=== PATIENT | female | born 1970 | race Caucasian/White ===

== ENCOUNTER 2018-08-05 15:03 | Emergency (ER) | payer OTHER ==
[~2018-08-05] VITALS: Ht 149.9 cm; Wt 57.2 kg
[2018-08-05] MEDS ORDERED: AMBIEN5 MG (15:13)
[2018-08-05] MEDS ORDERED: PROZAC40 MG (15:13)
[2018-08-05] MEDS ORDERED: GABAPENTIN800 MG (15:14)
[2018-08-05] MEDS ORDERED: CLONAZEPAM1 MG (15:14)
[2018-08-05] MEDS ORDERED: TRAMADOL HCL50 MG (15:15)
[2018-08-05] MEDS ORDERED: ASPERCREME1 EACH (15:15)
== END 2018-08-05 19:43 | disposition home or self-care (01) ==
LOC: ER 15:03
DX: S13.4XXA Sprain of ligaments of cervical spine, initial encounter (principal); S30.1XXA Contusion of abdominal wall, initial encounter; S20.312A Abrasion of left front wall of thorax, initial encounter; V49.9XXA Car occupant (driver) (passenger) injured in unspecified traffic accident, initial encounter; Y93.89 Activity, other specified; Y92.488 Other paved roadways as the place of occurrence of the external cause; Y99.8 Other external cause status

== ENCOUNTER 2019-03-08 15:45 | Emergency (ER) | payer OTHER ==
[~2019-03-08] VITALS: Ht 149.9 cm; Wt 59.0 kg
[~2019-03-08 15:45] MED LIST: AMBIEN5 MG; ASPERCREME1 EACH; CLONAZEPAM1 MG; GABAPENTIN800 MG; PROZAC40 MG; TRAMADOL HCL50 MG
[2019-03-08] MEDS ORDERED: TUSNEL LIQUID178 ML PO (18:15)
[2019-03-08] MEDS ORDERED: ZITHROMAX500 MG PO (18:15)
[2019-03-08] MEDS ORDERED: DOLOGEN CAPLET1 EACH PO (18:15)
== END 2019-03-08 18:37 | disposition home or self-care (01) ==
LOC: ER 15:45
DX: B34.8 Other viral infections of unspecified site (principal)

== ENCOUNTER → 2019-03-09 | Emergency (ER) | payer OTHER ==
[~2019-03-09] MED LIST changes: +DOLOGEN CAPLET1 EACH PO; +TUSNEL LIQUID178 ML PO; +ZITHROMAX500 MG PO
== END | disposition left against medical advice (07) ==
LOC: ER 21:29
DX: Z53.20 Procedure and treatment not carried out because of patient's decision for unspecified reasons (principal)